=== PATIENT | male | born 1975 | race Caucasian/White ===

== ENCOUNTER 2017-06-09 21:06 | Emergency (ER) | payer OTHER ==
[~2017-06-09] VITALS: Ht 177.8 cm; Wt 100.2 kg
[2017-06-09 21:08] VITALS: TEMP 37; Ht 177.8 cm; Wt 100.2 kg
[2017-06-09] MEDS ORDERED: DOXYCYCLINE HYCLATE 100 MG CAP PO STA (21:31)
--- NOTE | 2017-06-09 21:50 | EMERGENCY ROOM VISIT NOTE ---
History Report prepared by Sherrie: Shahid Palafox Under the Supervision of: Dr. Kevin Sifuentes M.D. First contact with patient: 21:18 Chief Complaint: BITE Stated Complaint: TICK L ARM History of Present Illness The patient is a 41 year old male who presents to the Emergency Room with complaints of a tick bite to his left arm that occurred today. Earlier today, the patient was helping his friend with his roof. During this, he pulled off at least 30 ticks. He did not notice this one on the underside of his left arm. He denies any other symptoms. He denies any known allergies. Pt denies fevers, chills, lymphadenopathy, rash, or other complaints. Source of History: patient Onset: today Position: arm (left) Symptom Intensity: 1 tick Quality: other (Tick bite) Timing: constant Review of Systems See HPI for pertinent positives and negatives. A total of 6 systems were reviewed and were otherwise negative. Family History Patient reports no known family medical history. Social History Smoking Status: Current Every Day Smoker Drug Use: none Marital Status: Housing Status: lives with family Occupation Status: employed Current/Historical Medications No Active Prescriptions or Reported Meds Allergies Coded Allergies: No Known Allergies (Unverified , 03/19/15) Physical Exam Vital Signs Date Time Temp Pulse Resp B/P (MAP) Pulse Ox O2 Delivery O2 Flow Rate FiO2 06/09/17 22:01 80 140/89 96 06/09/17 21:08 37.0 84 16 145/94 97 Room Air Physical Exam GENERAL: Awake, alert, well-appearing, in no distress HENT: Normocephalic, atraumatic. Oropharynx unremarkable. EYES: Normal conjunctiva. Sclera non-icteric. UPPER EXTREMITIES: Tick removed from the posterior left arm with a tick twister. NEURO: Normal sensorium. SKIN: No rash or jaundice noted. Medical Decision & Procedures Medications Administered Medications (Trade) Dose Ordered Sig/Rashard Route Start Time Stop Time Status Last Admin Dose Admin Doxycycline Hyclate (Vibramycin Cap) 200 mg NOW STAT PO 06/09/17 21:31 06/09/17 21:32 DC 06/09/17 21:38 200 MG Procedure Tick removed from the left upper posterior arm with a tick twister. No complication. ED Course 2117: The patient was evaluated in room D5. A complete history and physical exam was performed. 2130: Ordered Vibramycin Cap 200 mg PO 2157: I reevaluated the patient. Discussed results and discharge instructions: He verbalized understanding and agreement. The patient is ready for discharge. Medical Decision Triage Nursing notes reviewed. The patient's presentation and history were concerning for tick bite. The patient noted multiple tick bites and he removed most except for 1. His was removed as noted with a tick twister. No palpitations. The patient was given prophylactic doxycycline 200 mg. I gave my usual and customary discussion regarding this issue. The patient was seen and examined with Dr. Deanna Michel, resident physician. We discussed the case and treatments ordered, reviewed the results, and determine the disposition. Please refer to the resident's note for additional details. I have been directly involved with the management and disposition as well as independently evaluated the patient as documented in this note. By the evaluation outlined above other emergent etiologies were deemed relatively unlikely. The patient was educated about the findings as listed above. All questions were answered and the patient was pleased with the treatment. Return instructions were outlined and the patient was discharged in stable condition. The patient was referred to his PCP for follow-up for a recheck of the current condition. Medication Reconcilliation Current Medication List: was personally reviewed by me Blood Pressure Screening Patient's blood pressure: Elevated blood pressure Blood pressure disposition: Referred to PCP Impression Primary Impression: Tick bite Scribe Attestation The scribe's documentation has been prepared under my direction and personally reviewed by me in its entirety. I confirm that the note above accurately reflects all work, treatment, procedures, and medical decision making performed by me. Departure Information Dispostion Home / Self-Care Prescriptions No Active Prescriptions or Reported Meds Referrals No Doctor, Assigned (PCP) Forms HOME CARE DOCUMENTATION FORM, IMPORTANT VISIT INFORMATION Patient Instructions My [facility] Additional Instructions Return to the ER immediately for spreading redness, fevers, pus-like drainage, severe pain, joint swelling, or as needed. Follow-up with your primary clinic as needed.
[2017-06-09 22:01] VITALS: BP 140/89; PULSE 80; O2SAT 96
== END 2017-06-09 22:00 | disposition home or self-care (01) ==
LOC: C.EDB 21:07 → C.EDD 22:00
DX: S40.862A Insect bite (nonvenomous) of left upper arm, initial encounter (principal); F17.200 Nicotine dependence, unspecified, uncomplicated; W57.XXXA Bitten or stung by nonvenomous insect and other nonvenomous arthropods, initial encounter; Y93.89 Activity, other specified; Y92.018 Other place in single-family (private) house as the place of occurrence of the external cause

== ENCOUNTER 2018-04-14 21:05 | Emergency (ER) | payer OTHER ==
[~2018-04-14] VITALS: Ht 177.8 cm; Wt 103.6 kg
[2018-04-14 21:08] VITALS: TEMP 36.8; Ht 177.8 cm; Wt 103.6 kg
[2018-04-14] MEDS ORDERED: OXYCODONE HCL IR 5 MG TAB (IMMEDIATE RELEASE) PO STA (21:39)
--- NOTE | 2018-04-14 21:47 | EMERGENCY ROOM VISIT NOTE ---
History First contact with patient: 21:26 Chief Complaint: EAR PAIN Stated Complaint: L EAR PAIN History of Present Illness The patient is a 42 year old male who presents to the Emergency Room via private vehicle accompanied by female with complaints of "left ear pain". The patient states that since January he has been experiencing waxing and waning left- sided jaw tear pain. He notes that there is been no trauma, injury, recent swelling, airplane travel, diving, fevers, chills. He states that for the past 2 days has been experienced persistent pain in the left ear, behind the ear and radiating down to the lower left jaw. He states that the area is very sensitive to air moving across the region. He rates the pain is a 9/10. He denies any drainage from the mouth. Minimal drainage from the ear. He has been trying Tylenol with minimal relief. Review of Systems A complete 10-point Review of Systems was discussed with the patient, with pertinent positives and negatives listed in the History of Present Illness. All remaining Review of Systems questions can be considered negative unless otherwise specified. Past Medical/Surgical History No pertinent Family History Patient reports no known family medical history. No pertinent Social History Smoking Status: Current Every Day Smoker Drug Use: none Marital Status: Housing Status: lives with family Occupation Status: employed Current/Historical Medications Scheduled Amoxicillin & Pot Clavulanate (Augmentin 875-125 mg), 1 TAB PO BID Scheduled PRN Oxycodone Ir (Roxicodone Ir), 1 TAB PO Q4H PRN for Pain Physical Exam Vital Signs Date Time Temp Pulse Resp B/P (MAP) Pulse Ox O2 Delivery O2 Flow Rate FiO2 04/14/18 22:48 89 18 134/78 98 Room Air 04/14/18 21:08 36.8 86 18 175/103 95 Room Air Physical Exam VITAL SIGNS - Vital signs and nursing notes were reviewed. Stable. GENERAL - 42-year-old male appearing his stated age who is in no acute distress. Communicates well with provider and answers questions appropriately. SKIN - Without rashes. Minimal left-sided facial edema overlying the left angle of the mandible in the no erythema. No fluctuance HEAD - NC/AT. EYES - PERRL with EOMI bilaterally. Sclera anicteric. EARS - No deformities of external structures noted on gross examination bilaterally. No pain elicited with palpation of the tragus bilaterally. External auditory canals without discharge or otorrhea. Tympanic membranes pearly rashid without retraction or bulging. Handle of malleus, umbo, cone of light, pars tensa/flaccid all easily visualized. Minimal erythema noted to the TM without evidence of infection. Minimal retraction of the TM. Minimal yellow fluid behind the TM bilaterally. TM not perforated. NOSE - Midline and without cyanosis. No epistaxis or purulent drainage noted. Septum midline without deviation or septal hematoma noted. MOUTH/OROPHARYNX - Without perioral cyanosis. Buccal mucosa pink and moist and without leukoplakia. Tongue midline with equal elevation of palate bilaterally. No tonsillar hypertrophy, erythema, or exudates noted. Fair dentition noted. The lower inferior dentition, tooth #4 is important fair with gumline retraction. NECK - Neck with FROM. Supple to palpation. Minimal left anterior lymphadenopathy noted. No nuchal rigidity. EXTREMITIES - No clubbing or peripheral cyanosis. No pretibial edema present. +5 /5 strength noted in UE/LE bilaterally. NEUROLOGIC - Cranial nerves II through XII grossly intact. Sensory intact to light touch throughout. PSYCH - A&O, and cooperates fully with examiner. Pt is very pleasant and interacts well with examiner. Medical Decision & Procedures ER Provider Diagnostic Interpretation: [~ rep ct add3]] CT SOFT TISSUE NECK WITHOUT CT DOSE: 658.63 mGy.cm CLINICAL HISTORY: Left-sided neck and facial edema. Left ear pain. TECHNIQUE: Helical images were acquired in the transverse plane. The patient refused intravenous contrast. A dose lowering technique was utilized adhering to the principles of ALARA. COMPARISON STUDY: None. FINDINGS: The visualized portions of the lung apices are unremarkable. No thyroid abnormalities are visualized this noncontrast study. No salivary gland masses are visualized in this noncontrast study. No orbital masses are visualized. No mucosal space masses are visualized in this noncontrast study. Mildly prominent cervical lymph nodes are likely reactive. There is a left maxillary sinus air-fluid level. There are multiple dental caries. There is a prominent apical lucency involving the left lateral maxillary incisor. There is associated cortical destruction involving the anterior and posterior maxillary myers at this level. While likely representing a dental apical abscess, a dentigerous cyst is within the differential. There is left-sided perimandibular and perimaxillary edema. No definite soft tissue abscess is visualized however evaluation for abscesses is limited due to the lack of intravenous contrast. IMPRESSION: 1. Very poor dentition with multiple dental caries 2. Cystic lucency involving the root of the left maxillary incisor. There is associated cortical destructive change involving the anterior and posterior maxillary myers at this level. While likely representing a dental apical abscess, a dentigerous cyst is within the differential. 3. Left perimandibular and premaxillary soft tissue edema likely inflammatory 4. Prominent cervical lymph nodes statistically reactive 5. Dental consultation is recommended in follow-up 6. Left maxilla sinus air-fluid level Electronically signed by: Kade Marcum M.D. 04/14/2018 9:54 PM Dictated Date/Time: 04/14/2018 9:46 PM Medications Administered Medications (Trade) Dose Ordered Sig/Rashard Route Start Time Stop Time Status Last Admin Dose Admin Oxycodone HCl (Roxicodone Immediate Rel Tab) 5 mg NOW STAT PO 04/14/18 21:39 04/14/18 21:40 DC 04/14/18 21:49 5 MG Medical Decision Patient was seen and evaluated as above in room D7. Review was performed of nursing notes and vital signs. After obtaining a thorough history and physical examination the above work up was performed. He presents to us today with left ear pain and left jaw pain. He has poor dentition. I offered him a CT scan with contrast and he refused the IV. This was performed without contrast. Dental apices noted. I suspect this to be a small non-drainable abscess. Augmentin will be initiated. He was given oxycodone for pain. He was educated upon benefit versus risk. He is not to drive with this medication. No signs of Lopez angina. No red flags in the [place] drug monitoring system. No signs of meningitis or encephalitis. He was informed upon the importance of follow-up with dentists. He was given number for dentist. The patient was educated upon management, educated upon todays findings results, educated upon symptoms in which to return, had questions answered prior to discharge, and was discharged home in good condition. Case was discussed with the attending physician. In the evaluation and treatment of this patient, the following differential diagnoses were considered: Periapical Abscess, Osteonecrosis of the Jaw, Dental Fracture, Dental Caries, Lopez's Angina, Vincent's Angina, Facial Cellulitis. Impression Primary Impression: Ear pain, left Departure Information Dispostion Home / Self-Care Condition GOOD Prescriptions Amoxicillin & Pot Clavulanate (Augmentin 875-125 mg) 1 Tab Tab 1 TAB PO BID for 9 Days, #18 TAB Prov: Maxi Parks PA-C 04/14/18 Oxycodone Ir (Roxicodone Ir) 5 Mg Tab 1 TAB PO Q4H Y for Pain, #15 TAB For Initial Treatment Prov: Maxi Parks PA-C 04/14/18 Referrals No Doctor, Assigned (PCP) Edgardo Hannon D.D.S. Patient Instructions My [facility] Additional Instructions You have been treated in the Emergency Department for Dental Pain. You have received pain medicine in the emergency department which impairs your ability to operate a vehicle. It is illegal for you to drive after receiving these medicines. You have been prescribed Oxy IR to be used for pain control. This is a narcotic medication. You cannot drive or consume alcohol while on this medicine. This medicine should only be used for pain that cannot be controlled with over-the- counter pain medicines. You were prescribed Augmentin to be taken every 12 hours. This is an antibiotic. All antibiotics have the potential to cause diarrhea. Stop this medication and contact a medical provider if you were to develop any significant adverse side effects including: wheezing, shortness of breath, passing out, vomiting, or a diffuse rash. Always take antibiotics as directed and COMPLETE the ENTIRE course regardless of the improvement of your symptoms. For pain control, you can use the following [id number] medicines (if >12 yo): - Regular strength (325mg/tab) Tylenol (acetaminophen) 2 tabs every 4-6 hours as needed. Do not exceed 12 tablets in a 24 hour period. Avoid taking more than 3 grams (3000 mg) of Tylenol per day. This includes any other sources of acetaminophen you may take on a regular basis. - Regular strength (200 mg/tab) Advil (ibuprofen) 1-2 tabs every 4-6 hours as needed. Do not exceed a dose of 3200 mg per day. Refrain from smoking cigarettes or using chewing tobacco until you have been evaluated by your dentist. Keeping beverages lukewarm and consuming soft foods can decrease your pain. Warm compresses over the affected area may offer some relief. You MUST seek evaluation of your dental pain by a dentist following your visit to the Emergency Department. The Emergency Department is not capable of treating dental issues long-term. You should call your dentist as soon as possible to make an appointment for evaluation of your dental pain. Return to the emergency department if you develop the following symptoms despite treatment course outlined above: fever, intractable pain, increased redness, swelling, or purulent discharge. Below is one of the local dentists whom you may call to schedule follow up: Dr. Kevin Amaro, DMD [phone] [address], [address] [place], [place]
--- NOTE | 2018-04-14 21:55 | DIAGNOSTIC IMAGING REPORT ---
CT SOFT TISSUE NECK WITHOUT CT DOSE: 658.63 mGy.cm CLINICAL HISTORY: Left-sided neck and facial edema. Left ear pain. TECHNIQUE: Helical images were acquired in the transverse plane. The patient refused intravenous contrast. A dose lowering technique was utilized adhering to the principles of ALARA. COMPARISON STUDY: None. FINDINGS: The visualized portions of the lung apices are unremarkable. No thyroid abnormalities are visualized this noncontrast study. No salivary gland masses are visualized in this noncontrast study. No orbital masses are visualized. No mucosal space masses are visualized in this noncontrast study. Mildly prominent cervical lymph nodes are likely reactive. There is a left maxillary sinus air-fluid level. There are multiple dental caries. There is a prominent apical lucency involving the left lateral maxillary incisor. There is associated cortical destruction involving the anterior and posterior maxillary myers at this level. While likely representing a dental apical abscess, a dentigerous cyst is within the differential. There is left-sided perimandibular and perimaxillary edema. No definite soft tissue abscess is visualized however evaluation for abscesses is limited due to the lack of intravenous contrast. IMPRESSION: 1. Very poor dentition with multiple dental caries 2. Cystic lucency involving the root of the left maxillary incisor. There is associated cortical destructive change involving the anterior and posterior maxillary myers at this level. While likely representing a dental apical abscess, a dentigerous cyst is within the differential. 3. Left perimandibular and premaxillary soft tissue edema likely inflammatory 4. Prominent cervical lymph nodes statistically reactive 5. Dental consultation is recommended in follow-up 6. Left maxilla sinus air-fluid level Electronically signed by: Kade Marcum M.D. 04/14/2018 9:54 PM Dictated Date/Time: 04/14/2018 9:46 PM
[2018-04-14] MEDS ORDERED: AMOX875T PO (22:38)
[2018-04-14] MEDS ORDERED: OXYC-90 PO (22:38)
[2018-04-14] MEDS ORDERED: OXYCODONE IR HOME PACK PO STA (22:39)
[2018-04-14] MEDS ORDERED: AMOXICIL/CLAVU 875MG HOME PACK PO STA (22:39)
[2018-04-14 22:48] VITALS: BP 134/78; PULSE 89; O2SAT 98
== END 2018-04-14 22:40 | disposition home or self-care (01) ==
LOC: C.EDB 21:06 → C.EDD 22:40
DX: H92.02 Otalgia, left ear (principal); F17.200 Nicotine dependence, unspecified, uncomplicated